=== PATIENT | male | born 1965 | race Caucasian/White ===

== ENCOUNTER 2020-06-21 11:57 | Emergency (ER) | payer MEDICARE, MEDICAID ==
[~2020-06-21] VITALS: Ht 177.8 cm; Wt 72.3 kg
--- NOTE | 2020-06-21 12:31 | NUR ---
PT BIB INVESTIGATIVE RESEARCH SPECIALIST FROM [facility]. INVESTIGATIVE RESEARCH SPECIALIST REPORTS THAT HE IS IN A "STATE OF PYSCHOSIS AND HAS BEEN SCREAMING AND YELLING AND THE OTHER PTS AT THE GROUP HAVE NOT BEEN ABLE TO SLEEP. HE HASNT BEEN SLEEPING HIMSELF AND SOMETIMES WE HAVE TO RESTRAIN HIM". PT ARRIVES TODAY DENIES SI/HI BUT ADMITS TO HEARING VOICES BUT HE ISNT SURE WHAT THEY ARE SAYING. PT HAS BEEN CALM AND COOPERATIVE THUS FAR. PHYSICALLY, PT REPORTS RIGHT HIP PAIN AND THAT HE BROKE HIS RIGHT HIP IN 2003 AND NEEDS IT TO BE CHECKED ON EVERY ONCE AND WHILE. PT RESTING IN [facility]. INVESTIGATIVE RESEARCH SPECIALIST IS BEDSIDE.
[2020-06-21] MEDS ORDERED: OLANZAPINE 10 MG TABLET ONE (13:22)
--- NOTE | 2020-06-21 13:27 | NUR ---
PT MEDICATED PER JUL. PT GIVEN WATER. PT STATES HE CANT URINATE AT THIS TIME
[2020-06-21] MEDS ORDERED: OLANZAPINE ODT 10MG PO ONE (13:30)
[2020-06-21 13:48] LABS: ALANINE AMINOTRANSFERASE 25 U/L (12-78); ALBUMIN 3.6 g/dL (3.4-5.0); ANION GAP 3 mmol/L (5-15); CALCIUM 8.3 mg/dL (8.5-10.1); CHLORIDE 109 mmol/L (98-107); CREATININE 0.84 mg/dL (0.7-1.3); SALICYLATE LEVEL 4.3 mg/dL (2.8-20.0)
[2020-06-21 13:52] LABS: BASOPHILS % (AUTO) 1 % (0-1); EOSINOPHILS % (AUTO) 1 % (1-7); LYMPHOCYTES % (AUTO) 16 % (22-44); MD NO; MEAN CORPUSCULAR HEMOGLOBIN 33.9 pg (27.5-34.5); MEAN CORPUSCULAR HGB CONC 34.5 g/dL (33.2-36.2); MEAN PLATELET VOLUME 6.7 fL (7.4-10.4); MONOCYTES % (AUTO) 7 % (2-9); NEUTROPHILS % (AUTO) 75 % (42-75); PLATELET COUNT 344 x10^3/uL (130-400); RED BLOOD COUNT 4.04 x10^6/uL (4.38-5.82)
--- NOTE | 2020-06-21 13:53 | NUR ---
ASSUMED CARE FROM RHODA HENAO. PT RESTING IN [facility], MONITORING IN PLACE, [place] AT THIS TIME, [place].
--- NOTE | 2020-06-21 13:54 | NUR ---
URINE SPECIMEN COLLECTED AND SENT TO LAB AT THIS TIME.
[2020-06-21 13:59] LABS: ALKALINE PHOSPHATASE 149 U/L (45-117); BILIRUBIN,TOTAL 0.3 mg/dL (0.2-1.0); TOTAL PROTEIN 6.7 g/dL (6.4-8.2)
[2020-06-21 14:34] LABS: AMPHETAMINE SCREEN, URINE Negative (Negative); BARBITURATE SCREEN, URINE Negative (Negative); BENZODIAZEPINE SCREEN, URINE Negative (Negative); CANNABINOID SCREEN, URINE Positive (Negative); COCAINE SCREEN, URINE Negative (Negative); METHADONE SCREEN, URINE Negative (Negative); OPIATE SCREEN, URINE Negative (Negative)
[2020-06-21 14:40] VITALS: BP 131/81
--- NOTE | 2020-06-21 14:46 | NUR ---
task rn: pt requesting some water and snacks. cleared with primary rn. pt provided water bottle and crackers. no other wants or needs expressed
[2020-06-21] MEDS ORDERED: PALIPERIDONE PALMITATE 234 MG/1.5 ML IM ONE (15:30)
--- NOTE | 2020-06-21 15:42 | NUR ---
[facility] ATTORNEY FROM [facility] CALLED, STATES [facility] [employer] WILL COME TO PICK PT UP AFTER DISCHARGE.
[2020-06-21 22:26] LABS: MICROSCOPIC NOT IND
== END 2020-06-21 16:08 | disposition home or self-care (01) ==
LOC: ED 13:05
DX: F20.0 Paranoid schizophrenia (principal); M25.551 Pain in right hip; F17.200 Nicotine dependence, unspecified, uncomplicated
CPT/HCPCS: 36415; 80053; 80299; 80307; 80320; 80329; 81003; 84443; 85025; 96372; 99284; J2426; 99283; G0480

== ENCOUNTER 2020-06-29 10:19 | Emergency (ER) | payer MEDICARE, MEDICAID ==
[~2020-06-29] VITALS: Ht 177.8 cm; Wt 72.8 kg
[2020-06-29] MEDS ORDERED: PALIPERIDONE PALMITATE 156 MG/ML IM ONE (10:33)
[2020-06-29] MEDS ORDERED: RISP4TAB66 PO (10:35)
[2020-06-29] MEDS ORDERED: OLAN10TA9 PO (10:35)
--- NOTE | 2020-06-29 10:36 | NUR ---
pt is a 55m complaining of hearing voices. He has a history of schizophrenia and was prescribed Invega outpatient but was unable to fill the prescription. He is here today for an Invega injection. Provider at bedside for evaluation. call light within reach and no further needs at this time.
[2020-06-29 11:23] VITALS: BP 136/80
--- NOTE | 2020-06-29 11:23 | NUR ---
Patient/Caregiver given discharge instructions and they have confirmed that they understand the instructions. Patient ambulatory with steady gait.
== END 2020-06-29 11:25 | disposition home or self-care (01) ==
LOC: ED 11:22
DX: F20.9 Schizophrenia, unspecified (principal); F17.200 Nicotine dependence, unspecified, uncomplicated
CPT/HCPCS: 96372; 99283; J2426

== ENCOUNTER 2020-10-22 10:41 | Emergency (ER) | payer MEDICARE, MEDICAID ==
[~2020-10-22 10:41] MED LIST: OLAN10TA9 PO; RISP4TAB66 PO
[2020-10-22 12:08] LABS: BASOPHILS % (AUTO) 0 % (0-1); EOSINOPHILS % (AUTO) 1 % (1-7); LYMPHOCYTES % (AUTO) 15 % (22-44); MEAN CORPUSCULAR HEMOGLOBIN 33.9 pg (27.5-34.5); MEAN PLATELET VOLUME 7.1 fL (7.4-10.4); MONOCYTES % (AUTO) 8 % (2-9); NEUTROPHILS % (AUTO) 75 % (42-75); PLATELET COUNT 254 x10^3/uL (130-400); RED BLOOD COUNT 4.18 x10^6/uL (4.38-5.82); RED CELL DISTRIBUTION WIDTH 12.7 % (9.4-14.8)
[2020-10-22 12:19] LABS: ALBUMIN 3.4 g/dL (3.4-5.0); ANION GAP 5 mmol/L (5-15); CHLORIDE 98 mmol/L (98-107)
[2020-10-22 12:23] LABS: ALANINE AMINOTRANSFERASE 14 U/L (12-78); ALKALINE PHOSPHATASE 131 U/L (45-117); BILIRUBIN,TOTAL 0.5 mg/dL (0.2-1.0); CREATININE 0.72 mg/dL (0.7-1.3); TOTAL PROTEIN 6.5 g/dL (6.4-8.2)
[2020-10-22 12:47] VITALS: BP 105/66
--- NOTE | 2020-10-22 13:57 | NUR ---
CHARGING OPERATOR [phone]
== END 2020-10-22 14:52 | disposition home or self-care (01) ==
LOC: ED 14:46
DX: R11.2 Nausea with vomiting, unspecified (principal)
CPT/HCPCS: 36415; 74021; 80053; 83690; 85025; 99284